=== PATIENT | male | born 1930 | race Caucasian/White ===

== ENCOUNTER 2019-06-26 16:45 | Inpatient (IN) | payer MEDICARE, BC ==
[~2019-06-26] VITALS: Ht 167.6 cm; Wt 88.0 kg
[2019-06-26] MEDS ORDERED: ISOS30TA6 PO (17:30)
[2019-06-26] MEDS ORDERED: ATOR40TA PO (17:30)
[2019-06-26] MEDS ORDERED: ASPI-605 PO (17:30)
[2019-06-26] MEDS ORDERED: LACT20SO4 PO (17:30)
[2019-06-26] MEDS ORDERED: CARV3.12 PO (17:30)
[2019-06-26] MEDS ORDERED: CEFT2FRO2 IV (17:30)
[2019-06-26] MEDS ORDERED: DOXY100C2 PO (17:30)
[2019-06-26] MEDS ORDERED: MELA3TAB41 PO (17:30)
[2019-06-26] MEDS ORDERED: ONDA4TAB11 PO (17:30)
[2019-06-26] MEDS ORDERED: ALBU2.5V13 IH (17:30)
[2019-06-26] MEDS ORDERED: ENOX40DI SQ ×2 (17:30)
--- NOTE | 2019-06-26 18:38 | NUR ---
RN ADMITTING NOTES DIRECT ADMITTED FROM [place], 88 YEARS OLD MALE TO UNIT VIA GURNEY ACCOMPANIED BY 2 AMBULANCE STAFF, A/O X 4. ABLE TO MAKE NEEDS KNOWN. NO COMPLAIN OF PAIN AT THIS TIME. PATIENT ORIENTED TO UNIT, ROOM AND STAFF. ON RA, BREATHING EVEN AND UNLABORED. V/S TAKEN AND RECORDED. PHYSICAL ASSESSMENT DONE. PHOTOS OF SKIN ISSUES TAKEN AND FILED ON CHART. ABDOMEN SOFT, NON -DISTENDED WITH POSITIVE BOWEL SOUNDS ON FOUR QUADRANTS. LUNGS CLEAR ON AUSCULTATION. PATIENT WITH IV ACCESS ON LAC#20, SL. PATENT AND INTACT. SAFETY MEASURES INITIATED, BED PLACED ON LOWEST LOCKED POSITION WITH SIDE RAILS UP X2. CALL LIGHT PLACED WITHIN EASY REACH. WILL CONTINUE TO MONITOR AND WILL ENDORSE TO TEXTILES SALES REPRESENTATIVE NURSE FOR JEAN MARIE.
[2019-06-26 20:00] VITALS: BP 116/60
[2019-06-26] MEDS ORDERED: ONDANSETRON HCL/PF 4 MG/2 ML VIAL IVP PRN (20:00)
[2019-06-26] MEDS ORDERED: MORPHINE SULFATE INJ 2 MG/ML DISP.SYRIN IV PRN (20:00)
[2019-06-26] MEDS ORDERED: NITROGLYCERIN 0.4 MG/TAB BOTTLE SL PRN (20:00)
[2019-06-26 20:10] LABS: BASOPHILS # (AUTO) 0.1 /CMM (0.0-0.2); BASOPHILS % (AUTO) 0.5 % (0.0-2.0); HEMATOCRIT 35 % (39-51); HEMOGLOBIN 11.9 g/dL (13.5-17.5); LYMPHOCYTES # (AUTO) 4.9 /CMM (0.8-4.8); MEAN CORPUSCULAR HGB CONC 34 g/dl (31.0-36.0); MEAN CORPUSCULAR VOLUME 96 fL (80-96); MONOCYTES # (AUTO) 2.4 /CMM (0.1-1.30); MONOCYTES % (AUTO) 10.2 % (2.0-12.0); NEUTROPHILS # (AUTO) 15.9 /CMM (1.8-8.9); NEUTROPHILS % (AUTO) 68.3 % (43.0-81.0); PLATELET COUNT (AUTO) 222 /CMM (150-450); RED BLOOD CELL COUNT(AUTO) 3.67 MIL/uL (4.5-6.0); WHITE BLOOD COUNT (AUTO) 23.4 K/uL (4.3-11.0)
[2019-06-26 20:15] LABS: CARBON DIOXIDE 24 mmol/L (21-32); CHLORIDE 100 mmol/L (98-107); CREATININE 1.7 mg/dL (0.6-1.3); GLUCOSE 139 mg/dL (74-106); POTASSIUM 4.2 mmol/L (3.5-5.1); SODIUM SERUM 136 mmol/L (136-145); UREA NITROGEN, BLOOD 43 mg/dL (7-18)
[2019-06-26 20:21] LABS: ALANINE AMINOTRANSFERASE 52 U/L (12-78); ALBUMIN 2.8 g/dL (3.4-5.0); ALKALINE PHOSPHATASE 58 U/L (46-116); ASPARTATE AMINOTRANSFERASE 55 U/L (15-37); BILIRUBIN,TOTAL 0.5 mg/dL (0.2-1.0); TOTAL PROTEIN, SERUM 6.8 g/dL (6.4-8.2)
--- NOTE | 2019-06-26 20:58 | NUR ---
PRINT PRODUCTION MANAGER OPENING NOTES RECEIVED PATIENT A/O X4 AZERI SPEAKING. PATIENT SHOWING NO SIGN OF DISTRESS BUT COMPLAINS OF LEFT BACK PAIN. PATIENT IS ON ROOM AIR WITH NO SIGN OF ANY SOB. PATIENT ON THE MONITOR SHOWING NSR HR IN THE 80'S. IV LINE ON THE LAC #20 S.L PATENT AND FLUSHING WELL. ALL SAFETY PRECAUTION APPLIED. WILL CONTINUE TO MONITOR PATIENT FOR JEAN MARIE.
[2019-06-26] MEDS ORDERED: CEFTRIAXONE 1 G VIAL ONE (21:19)
[2019-06-26] MEDS: CEFTRIAXONE 1 G in IV D5W 50 ML IV SCH (21:45)
[2019-06-26] MEDS ORDERED: AZITHROMYCIN 500 MG VIAL ONE (22:02)
[2019-06-26] MEDS ORDERED: HEPARIN INFUSION/D5W 500 ML IV ONE (22:04)
--- NOTE | 2019-06-26 22:05 | NUR ---
2205 CALLED PHARMACY AND SPOKE WITH BASILIA REGARDING NEW ORDER FOR HEPARIN DRIP, ORDER VERIFIED BY HIM AND OKAY TO START MEDICATION PER PROTOCOL.
[2019-06-26] MEDS ORDERED: HEPARIN SODIUM, PORCINE 5000 UNITS/1 ML VIAL IV ONE (22:30)
[2019-06-26] MEDS: HEPARIN INFUSION/D5W 500 ML IV PRN (22:54)
[2019-06-26] MEDS: AZITHROMYCIN 500 MG in IV D5W 250 ML IV SCH (23:17)
[2019-06-27] VITALS: BP 121/69
[2019-06-27 03:43] LABS: BASOPHILS # (AUTO) 0.2 /CMM (0.0-0.2); BASOPHILS % (AUTO) 0.9 % (0.0-2.0); EOSINOPHILS % (AUTO) 0.2 % (0.0-6.0); HEMATOCRIT 31 % (39-51); HEMOGLOBIN 10.9 g/dL (13.5-17.5); LYMPHOCYTES # (AUTO) 4.3 /CMM (0.8-4.8); LYMPHOCYTES % (AUTO) 21.8 % (20.0-44.0); MEAN CORPUSCULAR HGB CONC 35 g/dl (31.0-36.0); MEAN CORPUSCULAR VOLUME 95 fL (80-96); MONOCYTES # (AUTO) 2.2 /CMM (0.1-1.30); MONOCYTES % (AUTO) 11.3 % (2.0-12.0); NEUTROPHILS % (AUTO) 65.8 % (43.0-81.0); PLATELET COUNT (AUTO) 196 /CMM (150-450); RED BLOOD CELL COUNT(AUTO) 3.32 MIL/uL (4.5-6.0); WHITE BLOOD COUNT (AUTO) 19.8 K/uL (4.3-11.0)
[2019-06-27 03:55] LABS: CALCIUM, SERUM 8.5 mg/dL (8.5-10.1); CARBON DIOXIDE 23 mmol/L (21-32); CHLORIDE 102 mmol/L (98-107); CREATININE 1.4 mg/dL (0.6-1.3); GLUCOSE 136 mg/dL (74-106); MAGNESIUM 1.9 mg/dL (1.8-2.4); PHOSPHORUS 2.9 mg/dL (2.5-4.9); POTASSIUM 3.9 mmol/L (3.5-5.1); SODIUM SERUM 136 mmol/L (136-145); UREA NITROGEN, BLOOD 37 mg/dL (7-18)
[2019-06-27 03:57] LABS: CHOLESTEROL 148 mg/dL (<200); HDL CHOLESTEROL 32 mg/dL (40-60); LDL 108 mg/dL (0-99); TRIGLYCERIDES 101 mg/dL (30-150)
[2019-06-27 04:00] VITALS: BP 115/62
--- NOTE | 2019-06-27 06:44 | NUR ---
SHELLFISH HARVESTER NOTE PER PHARMACY IGNORE THE RECENT PTT DRAW OF 52.8 AND FOLLOW PROTOCOL. PTT WILL BE RECHECKED AT 1100
--- NOTE | 2019-06-27 07:15 | NUR ---
yarn hauler notes received bedside pt sleeping able to arouse with voice and touch report pt a/o x3 no s/s of respiratory distress or acute pain noted. sinus on monitor iv rfa # 20 saline locked and lac # 20 running heparin 950 units all protocol followed. safety precautions in place bed in low locked position with bed alarm. will cont to monitor accordingly
--- NOTE | 2019-06-27 07:18 | NUR ---
ASSET PROTECTION PROFESSIONAL CLOSING NOTE PATIENT IN BED WITH NO CURRENT SIGNS OF DISTRESS. ON ROOM AIR AND TOLERATING WELL. ALL SAFETY PRECAUTIONS APPLIED. ENDORSED PATIENT TO MORNING SHIFT NURSE FOR JEAN MARIE.
[2019-06-27 08:00] VITALS: BP 126/70
--- NOTE | 2019-06-27 08:17 | NUR ---
pt awake a/o x1 name very agitated and and vulgar refuses to cooperate. will move pt to room with sitter
--- NOTE | 2019-06-27 08:24 | NUR ---
pt moved to room 115
[2019-06-27] MEDS: ASPIRIN 81 MG TAB.CHEW PO SCH (09:17)
[2019-06-27] MEDS: METOPROLOL TARTRATE 25 MG TABLET PO SCH ×2 (09:18→17:00)
--- NOTE | 2019-06-27 09:41 | NUR ---
per dr day order type and cross for 4 units keep 2 units on hold pt hbg 14-10.9 order for h&h q12 hr for left side hematoma. will f/u with hospitalist
[2019-06-27] MEDS: MORPHINE SULFATE INJ 2 MG/ML DISP.SYRIN IV PRN ×2 (11:33→20:31)
[2019-06-27 12:00] VITALS: BP 99/51
[2019-06-27 13:45] LABS: HEMOGLOBIN 10.1 g/dL (13.5-17.5)
[2019-06-27 16:00] VITALS: BP 104/56
--- NOTE | 2019-06-27 17:52 | NUR ---
pt to have LHC in the am 1/3 . order from [facility] stop heparin drip 2 hrs prior to procedure. labs in the am prior to procedure to evaluate renal function and h/h. will endorse to noc
--- NOTE | 2019-06-27 18:23 | NUR ---
UA SENT TO LAB
[2019-06-27 19:29] LABS: APPEARANCE,URINE CLEAR (CLEAR); BILIRUBIN,URINE NEGATIVE (NEGATIVE); BLOOD, URINE NEGATIVE Ery/uL (NEGATIVE); COLOR,URINE YELLOW (YELLOW); KETONES,URINE NEGATIVE (NEGATIVE); LEUKOCYTE ESTERASE ,URINE NEGATIVE (NEGATIVE); NITRITE, URINE NEGATIVE (NEGATIVE); PH,URINE 5.5 (5.0-8.0); PROTEIN,URINE NEGATIVE (NEGATIVE); UGLUCOSE NEGATIVE (NEGATIVE); UROBILINOGEN,URINE 0.2 EU/dL (0.2)
--- NOTE | 2019-06-27 19:48 | NUR ---
VERIFICATION SPECIALIST OPENING NOTES RECEIVED PATIENT A/O X3 WITH SITTER AT BEDSIDE. PATIENT SHOWING NO SIGNS OF ANY DISTRESS AT THE MOMENT. ON ROOM AIR TOLERATING WITH NO SOB WITH O2 SAT AT 96%. PATIENT ON THE MONITOR SHOWING NSR HR IN THE 70'S. HAS IV ACCESS ON THE LAC WITH HEPARIN DRIP RUNNING PER [facility] PROTOCOL AND A RFA #20 S/L. ALL SAFETY PRECAUTIONS APPLIED. BED ALARM ON, CALL LIGHT WITHIN REACH, AND BED LOCKED IN LOW POSITION. WILL CONTINUE TO MONITOR PATIENT FOR JEAN MARIE.
[2019-06-27 19:49] LABS: CREATININE, URINE 147.4 MG/DL (30.0-125.0); URINE TOTAL PROTEIN 14.9 mg/dL (0-11.9)
[2019-06-27 20:00] VITALS: BP 118/60
[2019-06-27 20:16] LABS: HEMOGLOBIN 9.4 g/dL (13.5-17.5)
[2019-06-27] MEDS: CEFTRIAXONE 1 G in IV D5W 50 ML IV SCH (20:17)
[2019-06-27 20:21] LABS: EOSINOPHIL,URINE None Seen
[2019-06-27] MEDS: AZITHROMYCIN 500 MG in IV D5W 250 ML IV SCH (21:37)
[2019-06-27] MEDS: ATORVASTATIN 40 MG TABLET PO SCH (22:29)
[2019-06-27] MEDS: HEPARIN INFUSION/D5W 500 ML IV PRN (22:40)
--- NOTE | 2019-06-27 22:57 | NUR ---
Met with patient, he is alert and pleasant. States he lives locally with his in a single level dwelling. States he uses a walker as needed with ambulation and he is independent with adl's. He is on service with homehealth but he cannot recall the name or contact info. Patient plan to return home, will provide ride when discharge. Addendum: 06/27/19 at 1307 by SAROJ RUTLEDGE RN Amended: Links added.
[2019-06-28] VITALS (29 sets, daily range): BP systolic 83–155; BP diastolic 33–89
[2019-06-28 03:42] LABS: BASOPHILS # (AUTO) 0.1 /CMM (0.0-0.2); BASOPHILS % (AUTO) 0.4 % (0.0-2.0); EOSINOPHILS % (AUTO) 0.2 % (0.0-6.0); HEMATOCRIT 28 % (39-51); HEMOGLOBIN 9.7 g/dL (13.5-17.5); LYMPHOCYTES # (AUTO) 3.8 /CMM (0.8-4.8); LYMPHOCYTES % (AUTO) 20.2 % (20.0-44.0); MEAN CORPUSCULAR HGB CONC 35 g/dl (31.0-36.0); MEAN CORPUSCULAR VOLUME 94 fL (80-96); MONOCYTES # (AUTO) 1.8 /CMM (0.1-1.30); MONOCYTES % (AUTO) 9.4 % (2.0-12.0); NEUTROPHILS # (AUTO) 12.9 /CMM (1.8-8.9); NEUTROPHILS % (AUTO) 69.8 % (43.0-81.0); PLATELET COUNT (AUTO) 233 /CMM (150-450); RED BLOOD CELL COUNT(AUTO) 2.97 MIL/uL (4.5-6.0); WHITE BLOOD COUNT (AUTO) 18.6 K/uL (4.3-11.0)
[2019-06-28 04:01] LABS: ALBUMIN 2.5 g/dL (3.4-5.0); BILIRUBIN,TOTAL 0.5 mg/dL (0.2-1.0); CALCIUM, SERUM 8.4 mg/dL (8.5-10.1); CREATININE 1.2 mg/dL (0.6-1.3); PHOSPHORUS 3.1 mg/dL (2.5-4.9); POTASSIUM 4.1 mmol/L (3.5-5.1); TOTAL PROTEIN, SERUM 6.2 g/dL (6.4-8.2)
[2019-06-28] MEDS ORDERED: IODIXANOL 150 ML IV ONE ×2 (06:04→08:17)
[2019-06-28] MEDS ORDERED: LIDOCAINE HCL/PF 1% 30 ML SDV ONE (06:04)
[2019-06-28] MEDS ORDERED: VERAPAMIL HCL IV 5 MG/2 ML VIAL ONE (07:02)
[2019-06-28] MEDS ORDERED: NITROGLYCERIN ICAR 1,000 MCG/10 ML VIAL ICAR ONE (07:02)
[2019-06-28] MEDS ORDERED: HEPARIN SODIUM, PORCINE 1,000 UNIT/ML VIAL ONE (07:02)
[2019-06-28] MEDS ORDERED: FENTANYL PF 100MCG/2ML AMPUL ONE (07:09)
[2019-06-28] MEDS ORDERED: MIDAZOLAM HCL 2 MG/2ML VIAL ONE (07:10)
--- NOTE | 2019-06-28 07:15 | NUR ---
RN NOTE PATIENT SEND TO ICU FOR PROCEDURE. PATIENT IN NO SIGN OF ANY DISTRESS.
[2019-06-28] MEDS ORDERED: IV NS 0.9% 1,000 ML ONE (07:20)
[2019-06-28] MEDS ORDERED: IV SET PRIMARY PUMP SET 1 EA INFUS.SET MC ONE ×3 (07:20→09:00)
[2019-06-28] MEDS ORDERED: IV NS 0.9% 50 ML IV ONE ×2 (08:15→09:24)
[2019-06-28] MEDS ORDERED: CLOPIDOGREL BISULFATE 300 MG TABLET ONE (08:18)
[2019-06-28] MEDS ORDERED: ASPIRIN 325 MG TABLET ONE (08:18)
[2019-06-28] MEDS ORDERED: IODIXANOL 320MG/ML 100 ML IV ONE (08:19)
[2019-06-28] MEDS ORDERED: NOREPINEPHRINE 4 MG/4 ML AMPUL IV ONE (08:59)
[2019-06-28] MEDS ORDERED: IV NS 0.9% 250 ML IV ONE (09:00)
[2019-06-28] MEDS: METOPROLOL TARTRATE 25 MG TABLET PO SCH ×2 (09:00→16:32)
--- NOTE | 2019-06-28 10:45 | NUR ---
CREATIVE SERVICES WRITER: got pt from cathlab, A/Ox3, no pain, no c/o, SR, SBP over 100 below 150, O2sat over 94%, R.Femoral sheath is D/I, will be remove in 2 hrs by cathlab nurse, L.radial band is intact, will start d/c in 2 hrs by order/protocol, started NS 150ml/h x 5hrs per MD order
--- NOTE | 2019-06-28 10:46 | NUR ---
CHAUFFEUR AIRPORT LIMOUSINE: reevaluated: pt.is A/Ox1, no chest pain
--- NOTE | 2019-06-28 10:50 | NUR ---
HEATER OPERATOR HELPER: got explanation re s/p stents placement surgery status, POC
--- NOTE | 2019-06-28 11:00 | NUR ---
CARPENTER ROUGH: left hand pulse is palpable, no c/o of pain, numbness, cold sensation
--- NOTE | 2019-06-28 11:15 | NUR ---
LOGISTICS ACCOUNT MANAGER: refused for EKG, got explanation by me and TereRt re reason/orders/risks, no any pain now, no chest pain
--- NOTE | 2019-06-28 11:46 | NUR ---
STAFF SONOGRAPHER: pt. is in room/updated with s/p cathlab status, VS, POC. Pt.is A/Ox2, no any pain
--- NOTE | 2019-06-28 11:58 | NUR ---
DRAFTER COMMERCIAL: pt.is uncooperative now, tries to remove [id number] sensor, oriented for Dx, POC, orders, verbalized understanding, O2sat over 94%, no SOB, no chest pain, SR, SBP is over 100 below 150, said: don't want to urine now
--- NOTE | 2019-06-28 12:05 | NUR ---
TURRET PUNCH PRESS OPERATOR: pt.is oriented x1, unable to say , place, time, dementia? history/unable to get base line behavior information, can follow commands now, arms, legs symmetric activity+, symmetric face, tongue activity symmetric, no headache, no any pain
--- NOTE | 2019-06-28 12:30 | NUR ---
COMPUTER INFORMATION SYSTEMS PROFESSOR: cathlab team is in room to evaluate/remove sheath, confirmed: pt.signed consent by him self, evaluated pt.: able to follow commands, symmetric legs, arms activity, symmetric face, face muscles, tongue activity, remembers name as was before procedure
--- NOTE | 2019-06-28 12:40 | NUR ---
CAMP COORDINATOR: unable to remove sheath now, CL team will be back in 30 min
--- NOTE | 2019-06-28 13:01 | NUR ---
NURSING STUDENT: continue remove air from L.radial band per protocol, no bleeding. is in room, reevaluated pt, VS, checked pt. neuro status, confirmed: pt. is with dementia, confused sometime as base line. Pt can urinate
--- NOTE | 2019-06-28 13:46 | NUR ---
FREE LANCE MODEL: all air 18 ml removed from L.radial band, no bleeding, removed band
--- NOTE | 2019-06-28 14:30 | NUR ---
DIRECTOR MEETINGS: cathlab team rechecked ACT and removed R.femoral artery sheath, applied hands pressure over 20 mins, no bleeding, dressing is intact. Pt.was instructed to stay in flat position, don't touch dressing, avoid coughing, verbalized understanding
--- NOTE | 2019-06-28 14:45 | NUR ---
IT PROGRAMMER: , [facility] were in room, updated with pt.current status, VS, neuro status, [facility] confirmed: its pt base line with dementia
--- NOTE | 2019-06-28 15:00 | NUR ---
GOLF COURSE STARTER: Natasha LOZANOfemoral dressing is D/I. Pt is confused sometimes, tried one time to leave bed, oriented for fall prevention measures, needs sitter, notified charge nurse
--- NOTE | 2019-06-28 15:20 | NUR ---
TELEVISION AND RADIO REPAIRER: sent message for [facility] to verify home meds
[2019-06-28] MEDS: ASPIRIN 81 MG TAB.CHEW PO SCH (15:33)
--- NOTE | 2019-06-28 16:47 | NUR ---
HIV/AIDS CARE NURSE: pt is A/Ox1, can follow commands, confused episodes, charge nurse is aware, oriented again for fall prevention measures, POC, SR, SBP is over 100 below 150, O2sat WNL, R.femoral, L.wrist dressing are D/I, voids
[2019-06-28 18:28] LABS: HEMOGLOBIN 8.4 g/dL (13.5-17.5)
--- NOTE | 2019-06-28 19:00 | NUR ---
RN OPENING NOTES: RECEIVED PATIENT AWAKE, A/OX1, CONFUSED AND WANTING TO GET OUT OF BED, REORIENTED FOR FALL PREVENTION. ON TELE MONITOR SR WITH HR 90'S. ON ROOM AIR, TOLERATING WELL, SATURATING 98% AT THE MOMENT. NO SOB OR RESPIRATORY DISTRESS NOTED. DENIES ANY PAIN AT THE MOMENT. IV SITES FLUSHING AND PATENT, SITES C/D/I. BOTH SALINE LOCKED. PATIENT S/P PCI, RIGHT FEMORAL DRESSING INTACT, NO HEMATOMA NOTED ON THE SITE. LEFT BUTTOCK/HIP HEMATOMA NOTED. SAFETY MEASURES IN PLACE; CL WITHIN REACH, SIDE RAILS UP X3, BED ALARM ON, BED LOCKED AND IN LOWEST POSITION. WILL CONT TO MONITOR PT CLOSELY.
[2019-06-28] MEDS: CEFTRIAXONE 1 G in IV D5W 50 ML IV SCH (20:21)
--- NOTE | 2019-06-28 20:33 | NUR ---
RN NOTES PATIENT NOTED REMOVING LINES AND TRYING TO GET OUT OF BED, REORIENTED PATIENT HOWEVER STILL NOT COOPERATING. PATIENT STILL A/OX1 BUT VERY AGITATED, SHOUTING AND KICKING STAFF. PAGED MD REGARDING PATIENT CHANGE OF CONDITION. MD ORDERED VIA TELEPHONE CALL ATIVAN 1MG IV Q6H PRN. MD ALSO OKAY WITH BILATERAL SOFT WRIST RESTRAINTS FOR PT SAFETY. WILL ATTEND TO ORDERS AND CONT TO MONITOR PT CLOSELY.
[2019-06-28] MEDS: LORAZEPAM INJ 2 MG/ML VIAL IV PRN (20:50)
[2019-06-28] MEDS: AZITHROMYCIN 500 MG in IV D5W 250 ML IV SCH (21:15)
[2019-06-28] MEDS: ATORVASTATIN 40 MG TABLET PO SCH (22:00)
[2019-06-29] VITALS (34 sets, daily range): BP systolic 92–138; BP diastolic 33–78
[2019-06-29] MEDS: IV NS 0.9% 1,000 ML IV PRN ×3 (02:39→23:09)
[2019-06-29 04:53] LABS: BASOPHILS # (AUTO) 0.1 /CMM (0.0-0.2); BASOPHILS % (AUTO) 0.6 % (0.0-2.0); EOSINOPHILS % (AUTO) 0.6 % (0.0-6.0); HEMATOCRIT 22 % (39-51); HEMOGLOBIN 7.4 g/dL (13.5-17.5); LYMPHOCYTES # (AUTO) 2.7 /CMM (0.8-4.8); MEAN CORPUSCULAR HGB CONC 34 g/dl (31.0-36.0); MEAN CORPUSCULAR VOLUME 96 fL (80-96); MONOCYTES # (AUTO) 1.4 /CMM (0.1-1.30); MONOCYTES % (AUTO) 11.2 % (2.0-12.0); NEUTROPHILS # (AUTO) 8.2 /CMM (1.8-8.9); NEUTROPHILS % (AUTO) 65.6 % (43.0-81.0); PLATELET COUNT (AUTO) 119 /CMM (150-450); RED BLOOD CELL COUNT(AUTO) 2.26 MIL/uL (4.5-6.0); WHITE BLOOD COUNT (AUTO) 12.5 K/uL (4.3-11.0)
[2019-06-29 05:33] LABS: ALBUMIN 2.2 g/dL (3.4-5.0); BILIRUBIN,TOTAL 0.7 mg/dL (0.2-1.0); CALCIUM, SERUM 8.1 mg/dL (8.5-10.1); CREATININE 1.1 mg/dL (0.6-1.3); MAGNESIUM 1.9 mg/dL (1.8-2.4); PHOSPHORUS 2.1 mg/dL (2.5-4.9); POTASSIUM 4.2 mmol/L (3.5-5.1); TOTAL PROTEIN, SERUM 5.6 g/dL (6.4-8.2)
[2019-06-29] MEDS: LORAZEPAM INJ 2 MG/ML VIAL IV PRN (07:07)
--- NOTE | 2019-06-29 07:18 | NUR ---
RN CLOSING NOTES: PATIENT AWAKE, A/OX1, CONFUSED, REORIENTED FOR FALL PREVENTION. ON BILATERAL SOFT WRIST RESTRAINTS FOR PT SAFETY, STRONG PULSES NOTED. ON TELE MONITOR SR WITH HR 80'S. ON ROOM AIR, TOLERATING WELL, SATURATING 97% AT THE MOMENT. NO SOB OR RESPIRATORY DISTRESS NOTED. IV SITES FLUSHING AND PATENT, SITES C/D/I, IV FLUIDS RUNNING ORDERED, NO INFILTRATION NOTED. PATIENT S/P PCI, RIGHT FEMORAL DRESSING INTACT, NO HEMATOMA NOTED ON THE SITE. ALL MD ORDERS ATTENDED. SAFETY MEASURES IN PLACE; CL WITHIN REACH, SIDE RAILS UP X3, BED ALARM ON, BED LOCKED AND IN LOWEST POSITION. ENDORSED TO AM RN FOR JEAN MARIE.
--- NOTE | 2019-06-29 07:25 | NUR ---
SHELLFISH HARVESTER: pt.is on wrists restraints, Ox1, no chest pain, no c/o now, agitating, tried to leave bed, removed condom cath., PIVL by report, encouraged to be cooperative, verbalized understanding, oriented for POC, fall prevention measures, no SOB, O2sat. over 96%, SR, SBP is over 100 below 150, Ativan 1mg IV was given, skin under wrists restraints: no new bruises, R.groin dressing is D/I, got order for one PRBC transfusion per order, H/H 7.08/17
--- NOTE | 2019-06-29 08:10 | NUR ---
HEAD OPERATOR: consent for BT is in chart, placed in R.wrist PIVL #20, good blood return
[2019-06-29] MEDS: METOPROLOL TARTRATE 25 MG TABLET PO SCH ×2 (08:41→17:31)
[2019-06-29] MEDS: ASPIRIN 81 MG TAB.CHEW PO SCH (08:42)
[2019-06-29] MEDS: CLOPIDOGREL BISULFATE 75 MG TABLET PO SCH (08:42)
--- NOTE | 2019-06-29 09:30 | NUR ---
ANCILLARY SERVICES MANAGER THERAPY: Harsh INSTRUCTION ASSISTANT PRINCIPAL is in room, updated with pt.current condition, neuro status, agitating episodes, wrists restraints, VS, IVF, I/O, H/H, PRBC x1 order, bruises/hematomas, ordered: repeat L.lateral abdomen US
[2019-06-29] MEDS ORDERED: K PHOS NEUTRAL 250 MG TABLET PO ONE (11:00)
--- NOTE | 2019-06-29 11:36 | NUR ---
BARREL COOPER: PRBC IV started, tolerated well, no c/o
--- NOTE | 2019-06-29 14:25 | NUR ---
SUPERVISOR WHEEL SHOP: one PRBC unit given/tolerated well
--- NOTE | 2019-06-29 18:50 | NUR ---
MENTAL HYGIENE CONSULTANT: pt is cooperative now, but still with confused episodes, can remove PIVLs, cath, on wrist restraints, no new bruises, skin under restraints is intact, SR, SBP over 100 below 150, O2sat. over 94%, no SOB, no chest pain during shift, no c/o, all PM,bedbath,skin care done, pt was oriented for POC
--- NOTE | 2019-06-29 19:00 | NUR ---
RN CLOSING NOTES: PATIENT AWAKE, A/OX1, CONFUSED, HOWEVER COOPERATIVE. ON BILATERAL SOFT WRIST RESTRAINTS FOR PT SAFETY, STRONG PULSES NOTED. ON TELE MONITOR SR WITH HR 60'S. ON ROOM AIR, TOLERATING WELL, SATURATING 98% AT THE MOMENT. NO SOB OR RESPIRATORY DISTRESS NOTED. IV SITES FLUSHING AND PATENT, SITES C/D/I, IV FLUIDS RUNNING ORDERED, NO INFILTRATION NOTED. SAFETY MEASURES IN PLACE; CL WITHIN REACH, SIDE RAILS UP X3, BED ALARM ON, BED LOCKED AND IN LOWEST POSITION, HOB ELEVATED. WILL CONT TO MONITOR CLOSELY. Addendum: 06/30/19 at 0438 by GENOVEVA HUMPHREYS RN CLARIFICATION: THIS IS RN OPENING NOTES NOT CLOSING NOTES.
[2019-06-29] MEDS: CEFTRIAXONE 1 G in IV D5W 50 ML IV SCH (20:06)
[2019-06-29] MEDS: AZITHROMYCIN 500 MG in IV D5W 250 ML IV SCH (20:39)
[2019-06-29 20:41] LABS: HEMOGLOBIN 8.9 g/dL (13.5-17.5)
[2019-06-29] MEDS: ATORVASTATIN 40 MG TABLET PO SCH (21:22)
[2019-06-30] VITALS (14 sets, daily range): BP systolic 108–162; BP diastolic 34–96
[2019-06-30] MEDS: LORAZEPAM INJ 2 MG/ML VIAL IV PRN (02:55)
[2019-06-30 05:02] LABS: BASOPHILS # (AUTO) 0.1 /CMM (0.0-0.2); BASOPHILS % (AUTO) 0.6 % (0.0-2.0); EOSINOPHILS % (AUTO) 2.5 % (0.0-6.0); HEMATOCRIT 26 % (39-51); HEMOGLOBIN 8.9 g/dL (13.5-17.5); LYMPHOCYTES # (AUTO) 2.7 /CMM (0.8-4.8); LYMPHOCYTES % (AUTO) 21.5 % (20.0-44.0); MEAN CORPUSCULAR HGB CONC 34 g/dl (31.0-36.0); MEAN CORPUSCULAR VOLUME 96 fL (80-96); MONOCYTES # (AUTO) 1.1 /CMM (0.1-1.30); MONOCYTES % (AUTO) 9.2 % (2.0-12.0); NEUTROPHILS # (AUTO) 8.3 /CMM (1.8-8.9); NEUTROPHILS % (AUTO) 66.2 % (43.0-81.0); PLATELET COUNT (AUTO) 241 /CMM (150-450); RED BLOOD CELL COUNT(AUTO) 2.72 MIL/uL (4.5-6.0); WHITE BLOOD COUNT (AUTO) 12.5 K/uL (4.3-11.0)
[2019-06-30 05:08] LABS: CALCIUM, SERUM 8.1 mg/dL (8.5-10.1); CREATININE 1.1 mg/dL (0.6-1.3); POTASSIUM 3.6 mmol/L (3.5-5.1)
--- NOTE | 2019-06-30 06:20 | NUR ---
SENIOR SHAREPOINT DEVELOPER NOTES PATIENT RETRANSFERRED FROM ICU. REPORT GIVEN AT BEDSIDE. PATIENT BREATHING EVEN AND UNLABORED ON ROOM AIR 100%. PATIENT DISPLAYS NO SIGNS OF ACUTE PAIN, NO ACUTE RESPIRATORY DISTRESS. IV ON R WRIST 20G RUNNING NS AT 100ML/HR. IV IS CLEAN DRY AND INTACT. SHOWS NO SIGNS OF REDNESS NO INFILTRATION. SOFT RESTRAINTS BILATERAL ON. TELE MONITOR SR WITH BVB 71HR. SAFETY PRECAUTION IN PLACE. BED IN LOWEST POSITION, LOCKED, AND CALL LIGHT KEPT WITHIN REACH. WILL CONTINUE TO MONITOR.
--- NOTE | 2019-06-30 06:30 | NUR ---
RN NOTES TRANSFERRED PATIENT IN ROOM 306-2 VIA ACLS PROTOCOL. BEDSIDE REPORT GIVEN TO BARB DUFFY FOR JEAN MARIE. PATIENT STABLE. ON BILATERAL SOFT WRIST RESTRAINTS AND BILATERAL MITTENS FOR PT SAFETY, STRONG PULSES NOTED. ON ROOM AIR, TOLERATING WELL, NO SOB OR RESPIRATORY DISTRESS NOTED. CONDOM CATH INTACT AND DRAINING WELL. IV SITES FLUSHING AND PATENT, SITES C/D/I. PATIENT KEPT CLEAN, DRY, AND COMFORTABLE THROUGHOUT SHIFT.
--- NOTE | 2019-06-30 06:58 | NUR ---
TELL RN OPENING NOTES PATIENT SLEEPING COMFORTABLY IN BED; BREATHING EVEN AND UNLABORED; NO SIGNS OF ACUTE RESPIRATORY DISTRESS NOTED; NO SIGNS OF DISCOMFORT NOTED; BED LOCKED IN LOWEST POSITION, SIDE RAILS UP X2; CALL LIGHT WITHIN EASY REACH. CONDOM CATH INTACT; CLEAR YELLOW URINE FLOWING WELL; TELE MONITOR SR 60-70S; R WRIST #20 INTACT AND PATENT; NO S/S OF REDNESS OR INFILTRATION; WILL CONTINUE TO MONITOR.
[2019-06-30] MEDS: IV NS 0.9% 1,000 ML IV PRN ×2 (07:42→16:53)
[2019-06-30] MEDS: ASPIRIN 81 MG TAB.CHEW PO SCH ×2 (09:00→12:38)
[2019-06-30] MEDS: CLOPIDOGREL BISULFATE 75 MG TABLET PO SCH ×2 (09:00→12:40)
[2019-06-30] MEDS: METOPROLOL TARTRATE 25 MG TABLET PO SCH ×3 (09:00→16:42)
[2019-06-30 09:40] LABS: IRON, SERUM 35 ug/dl (50-175); TOTAL IRON BINDING CAPACITY 172 ug/dl (250-450)
[2019-06-30 09:57] LABS: FERRITIN 444 ng/mL (8-388)
--- NOTE | 2019-06-30 10:15 | NUR ---
RNNOTES SCHEDULED MEDICATION NOT ADMINISTERED BECAUSE PATIENT TOO SEDATED, V/S TAKEN STABLE, 1;1 SITTER NEXT TO THE BED FOR SAFETY, PATIENT ON RESTRAIN BECAUSE OF TRYING TO REMOVE IV LINES, AND CONDOM CATH. CHECKED CIRCULATION, ASSIST TURN AND REPOSTION Q 2 HR.
[2019-06-30] MEDS ORDERED: BISACODYL SUPP (10 MG) 10 MG/SUPP.RECT SUPP.RECT RC ONE (12:00)
--- NOTE | 2019-06-30 14:34 | NUR ---
rn notes patient a/o X 2, no acute respiratory distress, v/s stable, refused pain at this time. condom cath draining light yellow output, checked soft restrain and mittens circulation. assist patient turn and reposition q 2 hr. call light within to reach. continued monitoring.
--- NOTE | 2019-06-30 18:00 | NUR ---
rn nnotes patient stable administered scheduled medication, confused, v/s stable, checked restrain circulation, needs attended and anticipated, safety precaution maintained all the time. endorsed oncoming nurse follow plan of care.
[2019-06-30 18:47] LABS: HEMOGLOBIN 9.5 g/dL (13.5-17.5)
--- NOTE | 2019-06-30 19:30 | NUR ---
MS/RN OPENING NOTES: RECEIVED PATIENT AWAKE IN BED; A/OX1-2. VERBALLY RESPONSIVE BUT HAS EPISODES OF CONFUSION. BREATHING EVEN AND UNLABORED; NO SIGNS OF ACUTE RESPIRATORY DISTRESS NOTED; NO SOB NOTED, NO SIGNS OF DISCOMFORT NOTED; BED LOCKED IN LOWEST POSITION, SIDE RAILS UP X2; ON SOFT RESTRAINTS BILATERAL WRISTS. CHECKED EVERY 2 HRS. CALL LIGHT WITHIN EASY REACH. CONDOM CATH INTACT; CLEAR YELLOW URINE FLOWING WELL; R WRIST #20G IS PULLED OUT BY PATIENT; WILL INSERT A NEW ONE. WILL CONTINUE TO MONITOR PT. ACCORDINGLY.
--- NOTE | 2019-06-30 20:00 | NUR ---
MS/RN NOTES: INSERTED AN IV LINE ON THE RIGHT WRIST 22G. INTACT, PATENT AND FLUSHING WELL. WITH NS RUNNING AT 100 ML/HR. NO S/S OF INFILTRATION.
--- NOTE | 2019-06-30 20:13 | NUR ---
MS/RN NOTES: SKIN ASSESSMENT DONE AND PHOTOS TAKEN AND DOCUMENTED ON THE CHART.
[2019-06-30] MEDS: CEFTRIAXONE 1 G in IV D5W 50 ML IV SCH (20:45)
[2019-06-30] MEDS: AZITHROMYCIN 500 MG in IV D5W 250 ML IV SCH (21:23)
[2019-06-30] MEDS: ATORVASTATIN 40 MG TABLET PO SCH (21:55)
[2019-07-01 01:16] LABS: OCCULT BLOOD STOOL POSITIVE (NEGATIVE)
[2019-07-01] MEDS: LORAZEPAM INJ 2 MG/ML VIAL IV PRN ×2 (02:16→23:45)
--- NOTE | 2019-07-01 02:16 | NUR ---
MS/RN NOTES: PATIENT IS AGITATED AND COMBATIVE. ADMINISTERED 1MG ATIVAN IV. VS STABLE. WILL CONTINUE MONITORING PT ACCORDINGLY.
[2019-07-01] MEDS: IV NS 0.9% 1,000 ML IV PRN ×2 (04:32→17:49)
[2019-07-01 06:17] LABS: BASOPHILS # (AUTO) 0.1 /CMM (0.0-0.2); BASOPHILS % (AUTO) 0.6 % (0.0-2.0); EOSINOPHILS % (AUTO) 3.8 % (0.0-6.0); HEMATOCRIT 26 % (39-51); LYMPHOCYTES # (AUTO) 2.8 /CMM (0.8-4.8); LYMPHOCYTES % (AUTO) 21.5 % (20.0-44.0); MEAN CORPUSCULAR HGB CONC 34 g/dl (31.0-36.0); MEAN CORPUSCULAR VOLUME 96 fL (80-96); MONOCYTES % (AUTO) 7.8 % (2.0-12.0); NEUTROPHILS # (AUTO) 8.6 /CMM (1.8-8.9); NEUTROPHILS % (AUTO) 66.3 % (43.0-81.0); PLATELET COUNT (AUTO) 284 /CMM (150-450); RED BLOOD CELL COUNT(AUTO) 2.73 MIL/uL (4.5-6.0)
--- NOTE | 2019-07-01 06:20 | NUR ---
MS/RN CLOSING NOTES: PATIENT IS ASLEEP IN BED; A/OX1-2. NO SIGNIFICANT CHANGES IN CONDITION. VERBALLY RESPONSIVE BUT STILL HAS EPISODES OF CONFUSION. BREATHING EVEN AND UNLABORED; NO SIGNS OF ACUTE RESPIRATORY DISTRESS NOTED; NO SOB NOTED, NO COMPLAINS OF PAIN OR DISCOMFORT.; BED LOCKED IN LOWEST POSITION, SIDE RAILS UP X2; ON SOFT RESTRAINTS BILATERAL WRISTS WITH MITTENS ON. CHECKED EVERY 2 HRS. CALL LIGHT WITHIN EASY REACH. CONDOM CATH INTACT; DRAINING CLEAR YELLOW URINE. TOTAL OUTPUT OF 500; R WRIST #22G IINTACT AND PATENT, IV ACCESS ON THE RIGHT FOOT #20G INTACT AND PATENT; ALL DUE MEDS GIVEN ORDERED. KEPT PATIENT WARM AND COMFORTABLE THROUGH OUT THE NIGHT. ALL NEEDS MET AND PROVIDED. WILL ENDORSE TO DAY SHIFT NURSE FOR JEAN MARIE.
[2019-07-01 06:25] LABS: POTASSIUM 3.6 mmol/L (3.5-5.1)
--- NOTE | 2019-07-01 06:50 | NUR ---
MS RN OPENING NOTES PATIENT SLEEPING IN BED COMFORTABLY; BREATHING EVEN AND UNLABORED; NO S/S OF ACUTE RESPIRATORY DISTRESS NOTED; CONDOM CATH INTACT; URINE FLOWING WELL, NO ISSUES NOTED; R WRIST #22 CLEAN, INTACT AND PATENT; FLUSHING WELL; NO S/S OF REDNESS OR INFILTRATION NOTED; SAFETY PRECAUTIONS IN PLACE; BED LOCKED IN LOWEST POSITION, SIDE RAILS X3. CALL LIGHT WITHIN EASY REACH; SITTER AT BED SIDE. WILL CONTINUE TO MONITOR.
[2019-07-01] MEDS: CLOPIDOGREL BISULFATE 75 MG TABLET PO SCH (09:23)
[2019-07-01] MEDS: ASPIRIN 81 MG TAB.CHEW PO SCH (09:23)
[2019-07-01] MEDS: METOPROLOL TARTRATE 25 MG TABLET PO SCH ×2 (09:24→16:57)
[2019-07-01 09:25] VITALS: BP 162/62
[2019-07-01] MEDS: PANTOPRAZOLE 40 MG TABLET.DR PO SCH ×2 (11:18→20:50)
[2019-07-01] MEDS: SUCRALFATE 1 G TABLET PO SCH ×3 (11:18→20:50)
--- NOTE | 2019-07-01 11:30 | NUR ---
rn notes patient in the bed quiet, administered scheduled medication, get new verbal order PT, condom cath draining light yellow output. checked circulation on bilateral upper extremities. call light within to reach. safety precaution maintained all the time.
[2019-07-01 16:00] VITALS: BP 117/65
--- NOTE | 2019-07-01 18:15 | NUR ---
MS RN CLOSING NOTES PATIENT RESTING COMFORTABLY IN BED; PATIENT AWAKE, A/O X2; PATIENT STILL HAS CONTINUED CONFUSION; BREATHING EVEN AND UNLABORED; NO S/S OF ACUTE RESPIRATORY DISTRESS NOTED; CONDOM CATH INTACT AND PATENT; FLOWING YELLOW URINE WITH NO ISSUES; R WRIST #22 INTACT AND PATENT; FLUSHING WELL; NO S/S OF REDNESS OR INFILTRATION; RUNNING NS @ 100ML/HR; RESTRAINTS ATTACHED; MONITORED SKIN FOR S/S OF REDNESS OR IRRITATION THROUGHOUT SHIFT. PATIENT DENIES PAIN; VITAL SIGNS STABLE; PATIENT ATE 75% OFF DINNER; TOLERATED DINNER; WILL ENDORSE CONTINUITY OF CARE TO NIGHT NURSE.
[2019-07-01 18:56] LABS: HEMOGLOBIN 9.6 g/dL (13.5-17.5)
[2019-07-01 20:00] VITALS: BP 128/63
[2019-07-01] MEDS: CEFTRIAXONE 1 G in IV D5W 50 ML IV SCH (20:25)
[2019-07-01] MEDS: ATORVASTATIN 40 MG TABLET PO SCH (20:50)
[2019-07-01] MEDS: AZITHROMYCIN 500 MG in IV D5W 250 ML IV SCH (21:02)
--- NOTE | 2019-07-01 21:45 | NUR ---
RECEIVED PATIENT IN BED ALERT, ORIENTED X 3 CONFUSE AT TIMES DENIES ANY PAIN OR DISCOMFORT AT THIS TIME, NO S/S OF RESPIRATORY DISTRESS NOTED, BREATHING EVEN UNLABORED ON ROOM AIR VITAL SIGN STABLE WILL CONTINUES TO MONITOR THE PATIENT FOR SAFETY AND FALL .
[2019-07-02 06:16] LABS: BASOPHILS # (AUTO) 0.1 /CMM (0.0-0.2); BASOPHILS % (AUTO) 0.6 % (0.0-2.0); EOSINOPHILS % (AUTO) 4.4 % (0.0-6.0); HEMATOCRIT 31 % (39-51); HEMOGLOBIN 10.5 g/dL (13.5-17.5); LYMPHOCYTES # (AUTO) 2.9 /CMM (0.8-4.8); LYMPHOCYTES % (AUTO) 21.7 % (20.0-44.0); MEAN CORPUSCULAR HGB CONC 34 g/dl (31.0-36.0); MEAN CORPUSCULAR VOLUME 97 fL (80-96); MONOCYTES % (AUTO) 7.8 % (2.0-12.0); NEUTROPHILS # (AUTO) 8.7 /CMM (1.8-8.9); NEUTROPHILS % (AUTO) 65.5 % (43.0-81.0); PLATELET COUNT (AUTO) 341 /CMM (150-450); RED BLOOD CELL COUNT(AUTO) 3.21 MIL/uL (4.5-6.0); WHITE BLOOD COUNT (AUTO) 13.3 K/uL (4.3-11.0)
--- NOTE | 2019-07-02 06:19 | NUR ---
No acute distress noted patient is alert, oriented 3 denies any pain or comfort at this time restraint to both hand to prevent from pulling the lines,check every 2 hrs for and release for 15 mins for skin check no redness noted no skin break down noted . Patient is NPO since Mid night for EGD, this morning call light within easy reach NS running 100 ml /hr to right hand will continues to monitor the patient for safety and fall and endorse to the oncoming nurse to continues of care.
[2019-07-02 06:26] LABS: CALCIUM, SERUM 8.8 mg/dL (8.5-10.1); CREATININE 1.1 mg/dL (0.6-1.3); POTASSIUM 3.5 mmol/L (3.5-5.1)
--- NOTE | 2019-07-02 07:35 | NUR ---
MS RN OPENING NOTES PATIENT RESTING IN BED COMFORTABLY; BREATHING EVEN AND UNLABORED; NO S/S OF ACUTE RESPIRATORY DISTRESS NOTED; PATIENT IS A/O X2, WITH CONTINUED CONFUSION; L WRIST #22 INTACT AND PATENT; RUNNING NS @ 100ML/HR; NO S/S OF REDNESS OR INFILTRATION NOTED; PATIENT NPO SINCE MIDNIGHT; AWAITING EGD PROCEDURE; BED LOCKED IN LOWEST POSITION; SIDE RAILS UP X3. CALL LIGHT WITHIN EASY REACH; WILL CONTINUE TO MONITOR.
[2019-07-02 08:00] VITALS: BP 165/90
[2019-07-02] MEDS: SUCRALFATE 1 G TABLET PO SCH ×4 (08:45→21:10)
[2019-07-02] MEDS: PANTOPRAZOLE 40 MG TABLET.DR PO SCH ×2 (08:45→20:47)
[2019-07-02] MEDS: METOPROLOL TARTRATE 25 MG TABLET PO SCH ×2 (08:45→17:09)
[2019-07-02] MEDS: CLOPIDOGREL BISULFATE 75 MG TABLET PO SCH (08:45)
[2019-07-02] MEDS: ASPIRIN 81 MG TAB.CHEW PO SCH (08:45)
--- NOTE | 2019-07-02 11:00 | NUR ---
MS RN NOTES PATIENT PICKED UP BY OR NURSE AT THIS TIME FOR EGD PROCEDURE; VITALS STABLE; BP 165/30, PULSE 94, RR 20.
[2019-07-02 13:00] VITALS: BP 125/65
--- NOTE | 2019-07-02 13:23 | NUR ---
rn notes patient back from EGD at this time, sleeping, v/s taken bp 128/65, p-63, r-18, 02-96 room air. patient has no acute respiratory distress. iv access on left hand 22 gauge, intact. call light within to reach, safety precaution maintained all the time. Mittens restrain on, patient has good circulation bilateral on upper arms. call light within to reach. get post up orders vs as per post up, present iv at 75 ml/hr, diet as tolerated. Orders taken and carried out.
--- NOTE | 2019-07-02 13:31 | NUR ---
rn notes patient necklaces sanded to the safe.
[2019-07-02] MEDS: IV NS 0.9% 1,000 ML IV PRN (14:04)
[2019-07-02 16:00] VITALS: BP 136/70
--- NOTE | 2019-07-02 18:18 | NUR ---
MS RN CLOSING NOTES PATIENT IS RESTING COMFORTABLY IN BED; A/O X2 WITH CONTINUED CONFUSION; BREATHING EVEN AND UNLABORED; NO S/S OF ACUTE RESPIRATORY DISTRESS NOTED; PATIENT DENIES PAIN. PATIENT DENIES SOB; L WRIST #22 RUNNING NS @ 75 ML/HR, IV SITE INTACT AND PATENT; FLUSHING WELL; NO S/S OF REDNESS OR INFILTRATION NOTED; BED LOCKED IN LOWEST POSITION; SIDE RAILS UP X4; CALL LIGHT WITHIN EASY REACH; WILL ENDORSE CONTINUITY OF CARE TO NIGHT NURSE.
[2019-07-02] MEDS: CEFTRIAXONE 1 G in IV D5W 50 ML IV SCH (19:54)
[2019-07-02 20:00] VITALS: BP 120/64
--- NOTE | 2019-07-02 20:17 | NUR ---
RN NOTES PM SHIFT PATIENT ALERT AND ORIENTED X2, WITH CONFUSION, IMPULSIVE BEHAVIOR, FALL RISK, ON ROOM AIR, NO COMPLAIN OF PAIN AT THIS TIME, BILATERAL MITTENS RENEWED, PATIENT PULLING OUT IV LINE AND REMOVING DIAPER, KEPT SAFE, WILL CONTINUE TO MONITOR
[2019-07-02 20:34] VITALS: BP 120/64
[2019-07-02] MEDS: AZITHROMYCIN 500 MG in IV D5W 250 ML IV SCH (20:37)
[2019-07-02] MEDS: ATORVASTATIN 40 MG TABLET PO SCH (21:10)
[2019-07-03] MEDS: LORAZEPAM INJ 2 MG/ML VIAL IV PRN (01:34)
[2019-07-03] MEDS: IV NS 0.9% 1,000 ML IV PRN (05:34)
[2019-07-03 06:23] LABS: BASOPHILS # (AUTO) 0.1 /CMM (0.0-0.2); BASOPHILS % (AUTO) 0.8 % (0.0-2.0); EOSINOPHILS % (AUTO) 4.5 % (0.0-6.0); HEMATOCRIT 31 % (39-51); HEMOGLOBIN 10.4 g/dL (13.5-17.5); LYMPHOCYTES # (AUTO) 1.9 /CMM (0.8-4.8); LYMPHOCYTES % (AUTO) 18.3 % (20.0-44.0); MEAN CORPUSCULAR HGB CONC 34 g/dl (31.0-36.0); MEAN CORPUSCULAR VOLUME 97 fL (80-96); MONOCYTES # (AUTO) 0.8 /CMM (0.1-1.30); NEUTROPHILS # (AUTO) 7.1 /CMM (1.8-8.9); NEUTROPHILS % (AUTO) 68.4 % (43.0-81.0); PLATELET COUNT (AUTO) 382 /CMM (150-450); RED BLOOD CELL COUNT(AUTO) 3.15 MIL/uL (4.5-6.0); WHITE BLOOD COUNT (AUTO) 10.4 K/uL (4.3-11.0)
[2019-07-03 06:33] LABS: CALCIUM, SERUM 8.6 mg/dL (8.5-10.1); CREATININE 1.1 mg/dL (0.6-1.3); MAGNESIUM 1.7 mg/dL (1.8-2.4); PHOSPHORUS 2.3 mg/dL (2.5-4.9)
--- NOTE | 2019-07-03 07:10 | NUR ---
RN NOTES PATIENT ALERT AND ORIENTED X1, ON ROOM AIR, NO CHEST PAIN, CONFUSED, UNABLE TO FOLLOW INSTRUCTIONS, PULLING OUT IV LINE, REMOVING DIAPER, GETTING OUT OF BED, ON BILATERAL MITTENS, S/P EGD, FOR EKG, PT EVAL, PSYCH EVAL, MONITOR H/H, OB +, CONTINUE AZITHROMYCIN AND CEFTRIAXONE IVPB
--- NOTE | 2019-07-03 07:40 | NUR ---
ms rn received on bed, awake,alertx1,not in any form of distress, respirations even and unlabored,no sob noted, lungs are diminished,abdomen soft,positive bowel sounds denies pain at this time,all needs attended.
[2019-07-03 08:00] VITALS: BP 139/72
--- NOTE | 2019-07-03 09:00 | NUR ---
ms lawler breakfast served,due meds given,tolerated well.
[2019-07-03] MEDS: MAGNESIUM OXIDE 400 MG TABLET PO SCH ×2 (09:39→17:11)
[2019-07-03] MEDS: CLOPIDOGREL BISULFATE 75 MG TABLET PO SCH (09:39)
[2019-07-03] MEDS: ASPIRIN 81 MG TAB.CHEW PO SCH (09:40)
[2019-07-03] MEDS: PANTOPRAZOLE 40 MG TABLET.DR PO SCH ×2 (09:40→20:50)
[2019-07-03] MEDS: METOPROLOL TARTRATE 25 MG TABLET PO SCH ×2 (09:41→17:12)
[2019-07-03] MEDS: SUCRALFATE 1 G TABLET PO SCH ×4 (09:41→20:50)
[2019-07-03] MEDS: NEUTRA PHOS 1 POWD.PACKET PO SCH ×3 (11:29→17:11)
[2019-07-03 16:00] VITALS: BP 125/65
[2019-07-03] MEDS: DOCUSATE SODIUM 100 MG CAPSULE PO SCH (17:11)
--- NOTE | 2019-07-03 17:56 | NUR ---
ms rn on bed, no distress noted,all needs attended.
[2019-07-03 19:58] VITALS: BP 132/57
[2019-07-03] MEDS ORDERED: AZITHROMYCIN 250 MG TABLET PO SCH (20:00)
[2019-07-03] MEDS: ATORVASTATIN 40 MG TABLET PO SCH (20:50)
[2019-07-03] MEDS: CEFTRIAXONE 1 G in IV D5W 50 ML IV SCH (20:50)
[2019-07-04] MEDS: LORAZEPAM INJ 2 MG/ML VIAL IV PRN (00:35)
--- NOTE | 2019-07-04 00:40 | NUR ---
MS/RN PATIENT WAS VERY AGITATED, YELLING IN HIS ROOM, TRYING TO GET OUT OF BED, PATIENT IS VERY HIGH FALL RISK, ATIVAN 1 MG IV WAS GIVEN ORDERED. WILL CONTINUE TO INGRID.
--- NOTE | 2019-07-04 01:26 | NUR ---
MS/RN PATIENT IS SLEEPING AT THIS TIME, AROUSABLE, APPEAR COMFORTABLE, NO SIGNS OF DISTRESS NOTED, CALL LIGHT IN REACH. WILL CONTINUE TO MONITOR.
[2019-07-04 06:25] LABS: BASOPHILS # (AUTO) 0.1 /CMM (0.0-0.2); BASOPHILS % (AUTO) 0.9 % (0.0-2.0); EOSINOPHILS % (AUTO) 3.8 % (0.0-6.0); HEMATOCRIT 32 % (39-51); HEMOGLOBIN 10.9 g/dL (13.5-17.5); LYMPHOCYTES # (AUTO) 1.9 /CMM (0.8-4.8); LYMPHOCYTES % (AUTO) 18.6 % (20.0-44.0); MEAN CORPUSCULAR HGB CONC 34 g/dl (31.0-36.0); MEAN CORPUSCULAR VOLUME 97 fL (80-96); MONOCYTES # (AUTO) 0.8 /CMM (0.1-1.30); MONOCYTES % (AUTO) 8.2 % (2.0-12.0); NEUTROPHILS % (AUTO) 68.5 % (43.0-81.0); PLATELET COUNT (AUTO) 402 /CMM (150-450); RED BLOOD CELL COUNT(AUTO) 3.27 MIL/uL (4.5-6.0); WHITE BLOOD COUNT (AUTO) 10.2 K/uL (4.3-11.0)
--- NOTE | 2019-07-04 06:47 | NUR ---
MS/RN PATIENT IS STILL SLEEPING AT THIS TIME, APPEAR COMFORTABLE, NO SIGNS OF DISTRESS NOTED, CALL LIGHT IN REACH, ALL NEEDS ATTENDED AT THIS TIME, WILL CONTINUE TO MONITOR.
[2019-07-04 06:58] LABS: CALCIUM, SERUM 8.5 mg/dL (8.5-10.1); CREATININE 1.1 mg/dL (0.6-1.3); MAGNESIUM 1.8 mg/dL (1.8-2.4); PHOSPHORUS 2.1 mg/dL (2.5-4.9); POTASSIUM 4.1 mmol/L (3.5-5.1)
--- NOTE | 2019-07-04 07:31 | NUR ---
RN OPENING NOTES Received patient on room air, no sob noted, patient a/o x1-2. Patient asleep in his bed at this time. Patient with R foot 22 hep lock. Bed at the lowest setting, call light within reach, side rails up x2.
[2019-07-04 08:00] VITALS: BP 124/53
[2019-07-04] MEDS: MAGNESIUM OXIDE 400 MG TABLET PO SCH (08:20)
[2019-07-04] MEDS: PANTOPRAZOLE 40 MG TABLET.DR PO SCH (08:20)
[2019-07-04] MEDS: ASPIRIN 81 MG TAB.CHEW PO SCH (08:20)
[2019-07-04] MEDS: DOCUSATE SODIUM 100 MG CAPSULE PO SCH (08:20)
[2019-07-04] MEDS: CLOPIDOGREL BISULFATE 75 MG TABLET PO SCH (08:20)
[2019-07-04] MEDS: SUCRALFATE 1 G TABLET PO SCH ×2 (08:20→12:25)
[2019-07-04] MEDS: METOPROLOL TARTRATE 25 MG TABLET PO SCH (08:20)
[2019-07-04] MEDS ORDERED: METO25TA20 PO (09:42)
[2019-07-04] MEDS ORDERED: CLOP75TA15 PO (09:42)
[2019-07-04] MEDS ORDERED: SUCR1TAB PO (09:42)
[2019-07-04] MEDS ORDERED: K PHOS NEUTRAL 250 MG TABLET PO ONE (10:00)
[2019-07-04 16:00] VITALS: BP 120/54
--- NOTE | 2019-07-04 16:07 | NUR ---
BARB ALBARRAN NOTES Patient d/c at this time. No sob noted, patient denies pain at this time, no chest pain or discomfort. Patient signed all discharge paper. Photos taken and is in the chart. Report given to MAXIMO in 4 seasons. Patient stated that he is not missing any personal belonging. Patient has his 2 gold chains with him at this time. IV line removed and noticed no bleeding.
[2019-07-09 15:07] LABS: *SPE A/G RATIO 0.9 (0.7-1.7); *SPE ALBUMIN 2.5 g/dL (2.9-4.4); *SPE ALPHA-1-GLOBULIN 0.4 g/dL (0.0-0.4); *SPE ALPHA-2-GLOBULIN 0.9 g/dL (0.4-1.0); *SPE BETA GLOBULIN 0.8 g/dL (0.7-1.3); *SPE GLOBULIN, TOTAL 2.9 g/dL (2.2-3.9); *SPE M-SPIKE 0.4 g/dL (Not Observed); *SPEGAMMA GLOBULIN 0.8 g/dL (0.4-1.8)
== END 2019-07-04 16:00 | DRG 853 ==
LOC: TELE1 16:45 → ICU 06-28 10:55 → MED 06-30 06:19 → TELE 06-30 06:59 → MED 06-30 13:32
PROVIDERS: ADMIT Family Medicine; ATTEND Family Medicine
PROC: 4A023N7 Measurement of Cardiac Sampling and Pressure, Left Heart, Percutaneous Approach (ICD-10-PCS; principal; 2019-06-28)
PROC: 027135Z Dilation of Coronary Artery, Two Arteries with Two Drug-eluting Intraluminal Devices, Percutaneous Approach (ICD-10-PCS; 2019-06-28)
PROC: B211YZZ Fluoroscopy of Multiple Coronary Arteries using Other Contrast (ICD-10-PCS; 2019-06-28)
PROC: 30233N1 Transfusion of Nonautologous Red Blood Cells into Peripheral Vein, Percutaneous Approach (ICD-10-PCS; 2019-06-29)
PROC: 0DB78ZX Excision of Stomach, Pylorus, Via Natural or Artificial Opening Endoscopic, Diagnostic (ICD-10-PCS; 2019-06-30)
DX: A41.9 Sepsis, unspecified organism (principal); I21.4 Non-ST elevation (NSTEMI) myocardial infarction; N17.0 Acute kidney failure with tubular necrosis; I50.23 Acute on chronic systolic (congestive) heart failure; J15.9 Unspecified bacterial pneumonia; G93.41 Metabolic encephalopathy; M48.56XA Collapsed vertebra, not elsewhere classified, lumbar region, initial encounter for fracture; I13.0 Hypertensive heart and chronic kidney disease with heart failure and stage 1 through stage 4 chronic kidney disease, or unspecified chronic kidney disease; K92.2 Gastrointestinal hemorrhage, unspecified; G95.89 Other specified diseases of spinal cord; N18.9 Chronic kidney disease, unspecified; E78.5 Hyperlipidemia, unspecified; D64.9 Anemia, unspecified; I25.10 Atherosclerotic heart disease of native coronary artery without angina pectoris; I25.2 Old myocardial infarction; I70.1 Atherosclerosis of renal artery; I73.9 Peripheral vascular disease, unspecified; K44.9 Diaphragmatic hernia without obstruction or gangrene; S30.0XXA Contusion of lower back and pelvis, initial encounter; S30.1XXA Contusion of abdominal wall, initial encounter; W06.XXXA Fall from bed, initial encounter; Y92.003 Bedroom of unspecified non-institutional (private) residence as the place of occurrence of the external cause; Z79.02 Long term (current) use of antithrombotics/antiplatelets; Z90.5 Acquired absence of kidney
CPT/HCPCS: 36415; 76770-TC; 76882; 80048-TC; 80053-TC; 80061-TC; 81000-TC; 82272-TC; 82550-TC; 82570-TC; 82728-TC; 83540-TC; 83735-TC; 83880; 83970; 84100-TC; 84155; 84155-TC; 84165; 84300-TC; 84484-TC; 85025-TC; 85027-TC; 85610-TC; 85730-TC; 86850-TC; 86921-TC; 87081-TC; 88305-TC; 88313-TC; 88342; 92980; 92981; 92982; 93307-TC; 93452; 97110-TC; 97116-TC; 97530-TC; A4216; A4349; A6403; C1725; C1887; C1894; G0378; J0456; J0696; J1644; J2060; J2250; J2270; J2405; J2704; J3010; J3490; J7030; J7050; J7060; P9016-BL; Q9967